=== PATIENT | female | born 1990 | race Hispanic/Latino ===

== ENCOUNTER 2017-12-06 15:22 | Emergency (ER) | payer OTHER, SELFPAY ==
--- NOTE | 2017-12-06 16:07 | RAD REPORT ---
EXAM DESCRIPTION: CT - Head Brain Wo Cont - 12/06/2017 3:57 pm CLINICAL HISTORY: TRAUMA Head injury COMPARISON: No comparisons TECHNIQUE: All CT scans are performed using dose optimization technique as appropriate and may inclu de automated exposure control or mA/KV adjustment according to patient size. FINDINGS: No intracranial hemorrhage, hydrocephalus or extra-axial fluid collection.No areas of brai n edema or evidence of midline shift. The paranasal sinuses and mastoids are clear. The calvarium is intact. Left posterior scalp hematoma. IMPRESSION: No acute intracranial abnormality.
--- NOTE | 2017-12-06 16:36 | EDPHYS ---
Physician Documentation [facility] Name: Norma Brandon Age: 27 yrs Sex: Female : 1990 Arrival Date: 12/06/2017 Time: 15:24 Bed 25 Private MD: ED Physician Wander Valle HPI: 12/06 16:19 This 27 yrs old Female presents to ER via Wheelchair with complaints of Head kb Injury With LOC-Adult. 16:19 The patient or guardian reports injury, pain. The complaints affect the left side of kb head. Context of injury: The problem was sustained at home, resulted from a fall, while walking. Onset: The symptoms/episode began/occurred 2 day(s) ago. Associated signs and symptoms: Loss of consciousness: This patient experience a loss of consciousness, that was brief, Pertinent positives: loss of conciousness, vomiting. Severity of symptoms: At their worst the symptoms were mild, moderate, in the emergency department the symptoms are unchanged. The patient has not experienced similar symptoms in the past. The patient has not recently seen a physician. Pt states she tripped and fell at home 2 days ago, hit her head on the door, then the floor. Reports brief LOC. States she has been sleeping a lot since then, went to work today and someone noticed bruising behind left ear. . 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 - Social history:: Smoking status: Patient/guardian denies using tobacco. - Immunization history: Last tetanus immunization: unknown. - Ebola Screening: : Patient denies travel to an Ebola-affected area in the 21 days before illness onset. ROS: 16:30 Constitutional: Negative for fever, chills, and weight loss, Cardiovascular: Negative kb for chest pain, palpitations, and edema, Respiratory: Negative for shortness of breath, cough, wheezing, and pleuritic chest pain, Back: Negative for injury and pain, : Negative for injury, bleeding, discharge, and swelling, MS/Extremity: Negative for injury and deformity, Skin: Negative for injury, rash, and discoloration. 16:30 Abdomen/GI: Positive for nausea and vomiting. 16:30 Neuro: Positive for loss of consciousness. Exam: 16:34 Constitutional: This is a well developed, well nourished patient who is awake, alert, kb and in no acute distress. Chest/axilla: Normal chest wall appearance and motion. Nontender with no deformity. No lesions are appreciated. Cardiovascular: Regular rate and rhythm with a normal S1 and S2. No gallops, murmurs, or rubs. Normal PMI, no JVD. No pulse deficits. Respiratory: Lungs have equal breath sounds bilaterally, clear to auscultation and percussion. No rales, rhonchi or wheezes noted. No increased work of breathing, no retractions or nasal flaring. Abdomen/GI: Soft, non-tender, with normal bowel sounds. No distension or tympany. No guarding or rebound. No evidence of tenderness throughout. MS/ Extremity: Pulses equal, no cyanosis. Neurovascular intact. Full, normal range of motion. Neuro: Awake and alert, GCS 15, oriented to person, place, time, and situation. Cranial nerves II-XII grossly intact. Motor strength 5/5 in all extremities. Sensory grossly intact. Cerebellar exam normal. Normal gait. 16:34 Head/face: Noted is no obvious of injury or deformity except ecchymosis, that is moderate, of the left occipital area and left ear. Vital Signs: 15:28 BP 116 / 79; Pulse 83; Resp 17; Temp 98(TE); Pulse Ox 99% on R/A; Weight 80.74 kg; tw2 Height 5 ft. 0 in. (152.40 cm) (R); Pain 10/10; 16:30 BP 126 / 70; Pulse 80; Resp 16; Pulse Ox 99% on R/A; kr2 15:28 Body Mass Index 34.76 (80.74 kg, 152.40 cm) tw2 [place] Coma Score: 15:30 Eye Response: spontaneous(4). Verbal Response: oriented(5). Motor Response: obeys kr2 commands(6). Total: 15. 16:19 Eye Response: spontaneous(4). Verbal Response: oriented(5). Motor Response: obeys kb commands(6). Total: 15. 16:31 Eye Response: spontaneous(4). Verbal Response: oriented(5). Motor Response: obeys kb commands(6). Total: 15. Trauma Score (Adult): 15:30 Eye Response: spontaneous(1); Verbal Response: oriented(1); Motor Response: obeys kr2 commands(2); Systolic BP: > 89 mm Hg(4); Respiratory Rate: 10 to 29 per min(4); Pradeep Score: 15; Trauma Score: 12 MDM: 15:32 Patient medically screened. kb 16:31 Data reviewed: vital signs, nurses notes. Data interpreted: Pulse oximetry: on room air kb is 99 %. Interpretation: normal. Counseling: I had a detailed discussion with the patient and/or guardian regarding: the historical points, exam findings, and any diagnostic results supporting the discharge/admit diagnosis, radiology results, the need for outpatient follow up, a family practitioner, to return to the emergency department if symptoms worsen or persist or if there are any questions or concerns that arise at home. 12/06 15:36 Order name: CT Head Brain wo Cont; Complete Time: 16:08 kb Administered Medications: No medications were administered Disposition: 17:37 Co-signature as Attending Physician, Wander Valle MD. rn Disposition: 12/06/17 16:36 Discharged to Home. Impression: Concussion. - Condition is Stable. - Discharge Instructions: Concussion, Adult, Zboi-ct-Colh. - Work release form, Medication Reconciliation Form, Thank You Letter, Antibiotic Education, Prescription Opioid Use form. - Follow up: Emergency Department; When: As needed; Reason: Worsening of condition. Follow up: Private Physician; When: 2 - 3 days; Reason: Recheck today's complaints, Continuance of care, Re-evaluation by your physician. Signatures: Dispatcher [employer] EDMS Urmila Dean, SED HIGH SCHOOL TEACHER-C SED HIGH SCHOOL TEACHER-Wander Hammer MD MD rn Wise, Tara RN RN tw2 Dania Solano RN RN kr2 Corrections: (The following items were deleted from the chart) 17:00 16:36 12/06/2017 16:36 Discharged to Home. Impression: Concussion. Condition is Stable. kr2 Forms are Medication Reconciliation Form, Thank You Letter, Antibiotic Education, Prescription Opioid Use. Follow up: Emergency Department; When: As needed; Reason: Worsening of condition. Follow up: Private Physician; When: 2 - 3 days; Reason: Recheck today's complaints, Continuance of care, Re-evaluation by your physician. kb
--- NOTE | 2017-12-06 16:36 | ER ---
Nurse's Notes [facility] Name: Norma Brandon Age: 27 yrs Sex: Female : 1990 Arrival Date: 12/06/2017 Time: 15:24 Bed 25 Private MD: Diagnosis: Concussion Presentation: 12/06 15:26 Presenting complaint: Patient states: I hit the door and then i hit the floor with my tw2 head 2 days ago, they said i slept and i told them i didn't want to come, i dont remember hitting myself. Transition of care: patient was not received from another setting of care. Onset of symptoms was December 06, 2017. Risk Assessment: Do you want to hurt yourself or someone else? Patient reports no desire to harm self or others. Initial Sepsis Screen: Does the patient meet any 2 criteria? No. Patient's initial sepsis screen is negative. Does the patient have a suspected source of infection? No. Patient's initial sepsis screen is negative. Care prior to arrival: None. 15:26 Method Of Arrival: Wheelchair tw2 15:26 Acuity: JASMEET 3 tw2 15:30 Mechanism of Injury: Fall from standing position. Trauma event details: Injury occurred kr2 in the [facility], Injury occurred: at home. Injury occurred: December 04, 2017. Triage Assessment: 15:27 General: Appears in no apparent distress. Behavior is calm, cooperative, appropriate tw2 for age. EENT: bruising noted behind LEFT ear. Neuro: Reports photophobia. GI: Reports nausea, vomiting, since 2 days ago. 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 - Social history:: Smoking status: Patient/guardian denies using tobacco. - Immunization history: Last tetanus immunization: unknown. - Ebola Screening: : Patient denies travel to an Ebola-affected area in the 21 days before illness onset. Screenin:30 Abuse screen: Denies threats or abuse. Denies injuries from another. Nutritional kr2 screening: No deficits noted. Tuberculosis screening: No symptoms or risk factors identified. Fall Risk Fall in past 12 months (25 points). Primary Survey: 15:30 Breathing/Chest: Respiratory pattern: regular, Respiratory effort: spontaneous, kr2 unlabored, Breath sounds: clear, bilaterally. Chest inspection: symmetrical rise and fall of the chest. Circulation: Heart tones present. Disability Alert. 16:49 Reassessment Breathing/Chest Respiratory pattern Regular Respiratory effort Spontaneous kr2 Unlabored Circulation Heart tones Present Color [place] Disability Alert. Assessment: 15:30 General: Appears in no apparent distress. uncomfortable, well groomed, Behavior is kr2 calm, cooperative, appropriate for age. Pain: Complains of pain in left side of head Pain radiates to entire head Pain currently is 5 out of 10 on a pain scale. at worst was 10 out of 10 on a pain scale. Quality of pain is described as throbbing, Is continuous, Alleviated by medications, Aggravated by increased activity. Neuro: Level of Consciousness is awake, alert, obeys commands, Oriented to person, place, time, situation, Appropriate for age Warehouse Driver are equal bilaterally Moves all extremities. Gait is steady, Speech is normal, Facial symmetry appears normal, Pupils are PERRLA, Intact. Cardiovascular: Capillary refill < 3 seconds in bilateral fingers Patient's skin is warm and dry. Respiratory: Airway is patent Respiratory effort is even, unlabored, Respiratory pattern is regular, symmetrical. GI: Abdomen is flat, non-distended, Reports nausea, vomiting, since 2 days ago. : Denies inability to void, incontinence. EENT: Oral mucosa is moist. Derm: Skin is intact, is healthy with good turgor, Skin is pink, warm \T\ dry. Bruising that is dark purple, on behind left ear. Musculoskeletal: Circulation, motion, and sensation intact. Injury Description: Patient reports she tripped and fell 2 days ago, hit her head on a door and family told her she was unconscious for a couple of minutes then fell asleep for several hours. 16:47 Reassessment: Patient appears in no apparent distress at this time. Patient and/or kr2 family updated on plan of care and expected duration. Pain level reassessed. Patient is alert, oriented x 3, equal unlabored respirations, skin warm/dry/pink. Vital Signs: 15:28 BP 116 / 79; Pulse 83; Resp 17; Temp 98(TE); Pulse Ox 99% on R/A; Weight 80.74 kg; tw2 Height 5 ft. 0 in. (152.40 cm) (R); Pain 10/10; 16:30 BP 126 / 70; Pulse 80; Resp 16; Pulse Ox 99% on R/A; kr2 15:28 Body Mass Index 34.76 (80.74 kg, 152.40 cm) tw2 Prade[place] Coma Score: 15:30 Eye Response: spontaneous(4). Verbal Response: oriented(5). Motor Response: obeys kr2 commands(6). Total: 15. 16:19 Eye Response: spontaneous(4). Verbal Response: oriented(5). Motor Response: obeys kb commands(6). Total: 15. 16:31 Eye Response: spontaneous(4). Verbal Response: oriented(5). Motor Response: obeys kb commands(6). Total: 15. Trauma Score (Adult): 15:30 Eye Response: spontaneous(1); Verbal Response: oriented(1); Motor Response: obeys kr2 commands(2); Systolic BP: > 89 mm Hg(4); Respiratory Rate: 10 to 29 per min(4); [place] Score: 15; Trauma Score: 12 ED Course: 15:24 Patient arrived in ED. rg4 15:27 Triage completed. tw2 15:28 Arm band placed on. tw2 15:30 Dania Solano, JC is Primary Nurse. kr2 15:30 Patient has correct armband on for positive identification. Bed in low position. Call kr2 light in reach. Side rails up X 1. Pulse ox on. NIBP on. Door closed. Warm blanket given. Head of bed elevated. 15:30 Patient maintains SpO2 saturation greater than 95% on room air. kr2 15:30 Thermoregulation: warm blanket given to patient. kr2 15:32 Wander Valle MD is Attending Physician. rn 15:32 Urmila Dean F[facility]-C [facility] kb 15:57 CT Head Brain wo Cont In Process Unspecified. EDMS 16:48 No provider procedures requiring assistance completed. Patient did not have IV access kr2 during this emergency room visit. Administered Medications: No medications were administered Intake: 15:30 PO: 0ml; Total: 0ml. kr2 Outcome: 16:36 Discharge ordered by . kb 16:51 Discharged to home ambulatory. kr2 16:51 Condition: stable 16:51 Discharge instructions given to patient, Instructed on discharge instructions, follow up and referral plans. Demonstrated understanding of instructions, follow-up care. 16:57 Patient's length of stay was not longer than 2 hours. kr2 17:00 Patient left the ED. kr2 Signatures: Dispatcher [employer] EDNV Urmila Dean FNP-C FNP-Wander Hammer MD MD rn Wise, Tara, RN RN alec2 Delilah Andrews 4 Dania Solano RN RN kr2
[2017-12-06 17:11] VITALS: TEMP 98; O2SAT 99
[2017-12-06 17:12] VITALS: BP 126/70
== END 2017-12-06 17:00 | disposition home or self-care (01) ==
LOC: ER 15:22
DX: S06.0X0A Concussion without loss of consciousness, initial encounter (principal); W18.39XA Other fall on same level, initial encounter; Y93.89 Activity, other specified; Y92.009 Unspecified place in unspecified non-institutional (private) residence as the place of occurrence of the external cause
CPT/HCPCS: 70450; 99284

== ENCOUNTER 2019-09-18 14:16 | Emergency (ER) | payer SELFPAY ==
[2019-09-18] MEDS ORDERED: ACETAMINOPHEN 325 MG TABLET ONE (16:36)
[2019-09-18 16:58] LABS: Absolute Lymphocytes (CBC) 1.4 K/uL (0.7-4.9); Basophils % 0.1 % (0-1.3); Hematocrit 39.8 % (36.0-45.0); Lymphocytes % 15.3 % (15.3-44.8); MPV 9.2 fL (7.6-11.3); RBC Red Blood Cell Count 4.63 M/uL (3.86-4.86)
[2019-09-18 17:47] LABS: Urine Blood 2+ (NEG); Urine Glucose NEGATIVE (NEG); Urine Protein NEGATIVE (NEG); Urine Specific Gravity >1.030 (1.005-1.030); Urine pH 5.5 (5.0-7.0)
[2019-09-18 17:47] LABS: Urine Bacteria <20 /HPF (<20); Urine Culture Reflex Order NOT NEEDED; Urine Mucus 1+ /HPF (NONE SEEN)
[2019-09-18 17:49] LABS: ALT/SGPT 23 U/L (12-78); AST/SGOT 16 U/L (15-37); Alkaline Phosphatase 63 U/L (45-117); BUN Blood Urea Nitrogen 15 mg/dL (7-18); Bicarbonate 22 mmol/L (21-32); Bilirubin Direct < 0.1 mg/dL (0-0.2); Bilirubin Total 0.2 mg/dL (0.2-1.0); Glucose Level 105 mg/dL (74-106); HCG, Quantitative 3693 mIU/mL (1-3); Lipase 57 U/L (73-393); Potassium 3.7 mmol/L (3.5-5.1); Protein, Total 7.9 g/dL (6.4-8.2); Sodium Level 137 mmol/L (136-145)
--- NOTE | 2019-09-18 19:20 | RAD REPORT ---
EXAM DESCRIPTION: US - Transvaginal Study Probe - 09/18/2019 6:55 pm CLINICAL HISTORY: ABD PAIN, COMPARISON: No comparisons TECHNIQUE: Endovaginal sonography was performed. FINDINGS: A small round fluid collection is present in the fundal portion of the endometrial cavity. This has the appearance of a normal shaped gestational sac. Average sac diameter corresponds to a 5 week 1 day gestation. No yolk sac or pole identifiable. In the endometrial cavity no hematoma, mass or other suspicious finding. Uterus is normal size. No myometrial mass is identifiable. Both ovaries are identified and show no suspicious findings. No dominant solid or cystic ovarian or a dnexal finding. No blood or fluid in the cul de sac. IMPRESSION: Small rounded fluid-filled sac in the endometrial cavity is most likely a 5 week 1 day s ized gestational sac. No yolk sac or pole identifiable.
--- NOTE | 2019-09-18 19:21 | RAD REPORT ---
EXAM DESCRIPTION: US - Renal Ultrasound-Complete - 09/18/2019 6:55 pm CLINICAL HISTORY: bilateral flank pain COMPARISON: No comparisons FINDINGS: The right kidney measures 11.5 x 5.2 x 5.4 cm. The left kidney measures 10.6 x 6.1 x 4.3 cm. Renal cortical thickness and echogenicity are normal. No hydronephrosis or suspicious renal mass. No bladder wall thickening or mass. No intraluminal stone or mass. IMPRESSION: No hydronephrosis or suspicious renal mass. No other significant findings.
--- NOTE | 2019-09-18 20:01 | EDPHYS ---
Physician Documentation [facility] Name: Norma Brandon Age: 29 yrs Sex: Female : 1990 Arrival Date: 09/18/2019 Time: 14:19 Bed 2 Private MD: ED Physician Eliceo Vanegas HPI: 09/17 16:19 This 29 yrs old Female presents to ER via Ambulatory with complaints of cp Abdominal Pain, Low Back Pain. 16:19 The patient presents with abdominal pain in the lower abdomen. cp 16:20 Onset: The symptoms/episode began/occurred gradually. cp 16:20 The symptoms radiate to mid back area. Associated signs and symptoms: Pertinent cp negatives: blood in stools, chest pain, constipation, diarrhea, dysuria, fever, vaginal discharge, vaginal bleeding. The symptoms are described as waxing/waning. Modifying factors: the symptoms are aggravated by movement. 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 - Social history:: Smoking status: Patient denies any tobacco usage or history of. ROS: 16:25 Constitutional: Negative for body aches, chills, fever, poor PO intake. cp 16:25 Abdomen/GI: Positive for abdominal pain, of the right lower quadrant and left lower quadrant, Negative for nausea, vomiting, and diarrhea, constipation. 16:25 Back: Positive for pain at rest, pain with movement, of the mid back area, Negative for decreased range of motion. 16:25 Cardiovascular: Negative for chest pain, edema, palpitations. cp 16:25 Neuro: Negative for altered mental status, dizziness, headache, weakness. 16:25 All other systems are negative. cp Exam: 16:30 Constitutional: The patient appears in no acute distress, alert, awake, non-toxic, well cp developed, well nourished. 16:30 Head/Face: Normocephalic, atraumatic. cp 16:30 Eyes: Periorbital structures: appear normal, Conjunctiva: normal, no exudate, no cp injection, Sclera: no appreciated abnormality, Lids and lashes: appear normal, bilaterally. 16:30 ENT: External ear(s): are unremarkable, Nose: is normal, Mouth: Lips: moist, Oral mucosa: pink and intact, moist, Posterior pharynx: is normal, airway is patent, no erythema, no exudate. 16:30 Chest/axilla: Inspection: normal, Palpation: is normal, no crepitus, no tenderness. 16:30 Cardiovascular: Rate: normal, Rhythm: regular. cp 16:30 Respiratory: the patient does not display signs of respiratory distress, Respirations: normal, no use of accessory muscles, no retractions, labored breathing, is not present, Breath sounds: are clear throughout, no decreased breath sounds, no stridor, no wheezing. 16:30 Abdomen/GI: Inspection: abdomen appears normal, Bowel sounds: active, all quadrants, Palpation: soft, in all quadrants, mild abdominal tenderness, in the right lower quadrant and left lower quadrant, rebound tenderness, is not appreciated, involuntary guarding, is not appreciated. 16:30 Back: pain, that is mild, of the mid back area, ROM is normal. 16:30 Neuro: Orientation: to person, place \T\ time. Mentation: is normal, Motor: moves all fours, strength is normal. Vital Signs: 14:38 BP 134 / 75; Pulse 104; Resp 17; Temp 99.1(TE); Pulse Ox 99% on R/A; Weight 77.11 kg; ss Height 5 ft. 0 in. (152.40 cm); Pain 9/10; 16:06 BP 126 / 71; Pulse 95; Pulse Ox 100% on R/A; ss 17:15 BP 111 / 81; Pulse 86; Resp 20; Pulse Ox 99% on R/A; Pain 6/10; em 20:16 BP 117 / 72; Pulse 76; Resp 18; Pulse Ox 98% on R/A; wh 14:38 Body Mass Index 33.20 (77.11 kg, 152.40 cm) MDM: 16:12 Patient medically screened. cp 17:00 Differential diagnosis: appendicitis, cholecystitis, Cholelithiasis, Ectopic , cp Endometriosis, non-specific abd pain, Ovarian Torsion, Pelvic Inflammatory Disease, Ureterolithiasis, urinary tract infection. 20:00 Data reviewed: vital signs, nurses notes, lab test result(s), radiologic studies, cp ultrasound. 20:00 Counseling: I had a detailed discussion with the patient and/or guardian regarding: the cp historical points, exam findings, and any diagnostic results supporting the discharge/admit diagnosis, lab results, radiology results, the need for outpatient follow up, an OB/Gyne specialist, to return to the emergency department if symptoms worsen or persist or if there are any questions or concerns that arise at home. Response to treatment: the patient's symptoms have mildly improved after treatment. ED course: VSS. Labs and radiology studies reviewed. Patient informed test positive and US shows IUP. Will discharge to home for continued monitoring. 09/17 15:37 Order name: Urine Dipstick--Ancillary (enter results); Complete Time: 17:58 em1 09/17 15:37 Order name: Urine --Ancillary (enter results); Complete Time: 17:58 [facility] 09/17 16:18 Order name: Quantitative Hcg; Complete Time: 17:58 09/17 16:18 Order name: Abo/rh Typing; Complete Time: 17:45 09/17 17:45 Interpretation: Reviewed. 09/17 16:18 Order name: Basic Metabolic Panel; Complete Time: 17:58 09/17 16:18 Order name: CBC with Diff; Complete Time: 17:45 09/17 17:45 Interpretation: Normal except: MCV 86.0; URIEL% 77.9. 09/17 15:26 Order name: Urine Dipstick-Ancillary (obtain specimen); Complete Time: 15:34 ss 09/17 16:18 Order name: Lipase; Complete Time: 17:58 cp 09/17 16:18 Order name: LFT's; Complete Time: 17:58 cp 09/17 16:18 Order name: Urine Microscopic Only; Complete Time: 17:58 cp 09/17 17:59 Order name: US Transvaginal Study (Probe); Complete Time: 19:35 cp 09/17 17:59 Order name: US Rp Exam Complete; Complete Time: 19:35 09/17 15:26 Order name: Urine Test (obtain specimen); Complete Time: 15:34 ss 09/17 16:18 Order name: IV Saline Lock; Complete Time: 18:55 cp 09/17 16:18 Order name: Labs collected and sent; Complete Time: 16:19 cp 09/17 16:18 Order name: NPO; Complete Time: 18:55 cp Administered Medications: 16:36 Drug: Tylenol 650 mg Route: PO; em 18:30 Follow up: Response: No adverse reaction; Marked relief of symptoms; Pain is decreased em 20:18 Follow up: Response: No adverse reaction; Pain is decreased wh Disposition: 20:20 Chart complete. 09/18 07:08 Co-signature as Attending Physician, Eliceo Vanegas MD I agree with the assessment and kdr plan of care. Disposition: 09/18/19 20:01 Discharged to Home. Impression: Low back pain, Lower abdominal pain, unspecified, related conditions, unspecified, first trimester. - Condition is Stable. - Discharge Instructions: Abdominal Pain During , Back Pain, Adult, First Trimester of , Back Exercises. - Prescriptions for Vitamin 27- 0.8 mg Oral Tablet - take 1 tablet by ORAL route once daily; 60 tablet. - Medication Reconciliation Form, Thank You Letter, Antibiotic Education, Prescription Opioid Use form. - Work release form (09/18/19 20:20). rr5 - Follow up: Quentin Juarez MD; When: 2 - 3 days; Reason: Recheck today's complaints. - Problem is new. - Symptoms have improved. Signatures: Dispatcher [employer] [facility] Eliceo Vanegas MD MD [facility] Frank Smith RN RN em Smirch, Shelby, RN RN ss Page, Corey, PA PA cp Habalo, Winsy wh Roque, Raymond RN rr5 Corrections: (The following items were deleted from the chart) 09/17 15:32 15:25 Stone Protocol+CT.RAD.BRZ ordered. [facility] 20:18 20:01 09/18/2019 20:01 Discharged to Home. Impression: Low back pain; Lower abdominal wh pain, unspecified; related conditions, unspecified, first trimester. Condition is Stable. Forms are Medication Reconciliation Form, Thank You Letter, Antibiotic Education, Prescription Opioid Use. Follow up: Quentin Juarez; When: 2 - 3 days; Reason: Recheck today's complaints. Problem is new. Symptoms have improved. cp
--- NOTE | 2019-09-18 20:01 | ER ---
Nurse's Notes [facility] Name: Norma Brandon Age: 29 yrs Sex: Female : 1990 Arrival Date: 09/18/2019 Time: 14:19 Bed 2 Private MD: Diagnosis: Low back pain;Lower abdominal pain, unspecified; related conditions, unspecified, first trimester Presentation: 09/17 14:38 Chief complaint: Patient states: R flank pain that radiates to RLQ. Pt reports this ss feels similar to when she had her last kidney stone. Coronavirus screen: Proceed with normal triage. Patient denies a cough. Patient denies shortness of breath or difficulty breathing. Patient denies measured and/or subjective temperature greater than 100.4F prior to today's visit. Patient denies travel on a cruise ship or to a country the [facility] currently lists as an affected area. Patient denies contact with known and/or suspected case of COVID-19. Ebola Screen: Patient denies exposure to infectious person. Patient denies travel to an Ebola-affected area in the 21 days before illness onset. Initial Sepsis Screen: Does the patient meet any 2 criteria? HR > 90 bpm. No. Patient's initial sepsis screen is negative. Does the patient have a suspected source of infection? No. Patient's initial sepsis screen is negative. Risk Assessment: Do you want to hurt yourself or someone else? Patient reports no desire to harm self or others. Onset of symptoms was September 16, 2019. 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 - Social history:: Smoking status: Patient denies any tobacco usage or history of. Screenin:35 Abuse screen: Denies threats or abuse. Nutritional screening: No deficits noted. em Tuberculosis screening: No symptoms or risk factors identified. Fall Risk None identified. Assessment: 16:30 General: Appears in no apparent distress. comfortable, Behavior is calm, cooperative, em appropriate for age, Denies fever. Pain: Complains of pain in mid back area Pain currently is 8 out of 10 on a pain scale. Neuro: Level of Consciousness is awake, alert, obeys commands, Oriented to person, place, time, situation, Appropriate for age. Cardiovascular: Capillary refill < 3 seconds Patient's skin is warm and dry. Respiratory: Airway is patent Respiratory effort is even, unlabored, Respiratory pattern is regular, symmetrical. GI: Abdomen is flat, Bowel sounds present X 4 quads. Abd is soft X 4 quads Patient currently denies nausea, vomiting. : Denies burning with urination. Derm: Skin is intact, is healthy with good turgor, Skin is pink, warm \T\ dry. Musculoskeletal: Capillary refill < 3 seconds, Range of motion: intact in all extremities. 17:24 Reassessment: Patient appears in no apparent distress at this time. Patient and/or em family updated on plan of care and expected duration. Pain level reassessed. Patient is alert, oriented x 3, equal unlabored respirations, skin warm/dry/pink. Patient states feeling better. 18:30 Reassessment: Patient appears in no apparent distress at this time. Patient and/or em family updated on plan of care and expected duration. Pain level reassessed. Patient is alert, oriented x 3, equal unlabored respirations, skin warm/dry/pink. 19:20 General: Appears in no apparent distress. Behavior is calm, cooperative, appropriate wh for age. Pain: Denies pain. Neuro: Level of Consciousness is awake, alert, obeys commands, Oriented to person, place, time, situation, Appropriate for age. Cardiovascular: Capillary refill < 3 seconds. Respiratory: Airway is patent Respiratory effort is even, unlabored, Respiratory pattern is regular, symmetrical. GI: Abdomen is flat, non-distended, Abd is soft. : No signs and/or symptoms were reported regarding the genitourinary system. EENT: No signs and/or symptoms were reported regarding the EENT system. Derm: Skin is intact, is healthy with good turgor, Skin is pink, warm \T\ dry. normal. Musculoskeletal: Circulation, motion, and sensation intact. 20:16 Reassessment: Patient appears in no apparent distress at this time. No changes from previously documented assessment. Patient and/or family updated on plan of care and expected duration. Pain level reassessed. Patient is alert, oriented x 3, equal unlabored respirations, skin warm/dry/pink. Vital Signs: 14:38 BP 134 / 75; Pulse 104; Resp 17; Temp 99.1(TE); Pulse Ox 99% on R/A; Weight 77.11 kg; ss Height 5 ft. 0 in. (152.40 cm); Pain 9/10; 16:06 BP 126 / 71; Pulse 95; Pulse Ox 100% on R/A; ss 17:15 BP 111 / 81; Pulse 86; Resp 20; Pulse Ox 99% on R/A; Pain 6/10; em 20:16 BP 117 / 72; Pulse 76; Resp 18; Pulse Ox 98% on R/A; wh 14:38 Body Mass Index 33.20 (77.11 kg, 152.40 cm) ED Course: 14:19 Patient arrived in ED. ag5 14:39 Triage completed. ss 14:40 Arm band placed on right wrist. ss 16:11 Frank Smith, RN is Primary Nurse. em 16:11 Juan Vera PA is PHCP. cp 16:11 Eliceo Vanegas MD is Attending Physician. cp 16:35 Patient has correct armband on for positive identification. Placed in gown. Bed in low em position. Call light in reach. Pulse ox on. NIBP on. 16:35 Initial lab(s) drawn, by me, sent to lab. Inserted saline lock: 20 gauge in left em antecubital area, using aseptic technique. Blood collected. 19:03 US Transvaginal Study (Probe) In Process Unspecified. EDMS 19:03 US Rp Exam Complete In Process Unspecified. EDMS 20:00 Quentin Juarez MD is Referral Physician. cp 20:17 No provider procedures requiring assistance completed. IV discontinued, intact, wh bleeding controlled, No redness/swelling at site. Administered Medications: 16:36 Drug: Tylenol 650 mg Route: PO; em 18:30 Follow up: Response: No adverse reaction; Marked relief of symptoms; Pain is decreased em 20:18 Follow up: Response: No adverse reaction; Pain is decreased Outcome: 20:01 Discharge ordered by . [email or web address] 20:17 Discharged to home ambulatory. 20:17 Condition: stable 20:17 Discharge instructions given to patient, Instructed on discharge instructions, follow up and referral plans. medication usage, POC Demonstrated understanding of instructions, follow-up care, medications, POC Prescriptions given X 1. 20:18 Patient left the ED. Signatures: Dispatcher [employer] Frank Calloway RN RN em Smirch, Shelby, RN RN ss Page, Corey, JOSIAH PA Tania Gilmore Madison Palacio ag5
[2019-09-18 22:34] VITALS: TEMP 99.1
[2019-09-18 22:37] VITALS: BP 117/72; O2SAT 98
== END 2019-09-18 20:18 | disposition home or self-care (01) ==
LOC: ER 14:16
DX: O26.891 Other specified pregnancy related conditions, first trimester (principal); Z3A.01 Less than 8 weeks gestation of pregnancy; Z87.442 Personal history of urinary calculi
CPT/HCPCS: 36415; 76770; 76830; 80048; 80076; 81003; 81015; 81025; 83690; 84702; 85025; 86900; 86901; 99284